=== PATIENT | female | born 1940 | race Caucasian/White ===

== ENCOUNTER 2019-04-25 07:54 | Outpatient (CLI) | payer MEDICARE, MEDICAID, SELFPAY ==
--- NOTE | 2019-04-25 08:06 | MM_ITS ---
WS: [id number] DIAGNOSTIC BILATERAL DIGITAL MAMMOGRAM WITH CAD Bilateral breast ultrasound, limited HISTORY: SUBAREOLAR MASS RIGHT BREAST, LEFT breast retraction. Prior surgery LEFT breast. COMPARISON: 06/23/2015 and 06/11/2015 and 03/26/2014 TECHNIQUE: Bilateral craniocaudad, mediolateral oblique, and mediolateral views are submitted. Spot c ompression views RIGHT and LEFT cc. Computer aided detection utilized. Breast composition: There are scattered areas of fibroglandular density. Triangular marker is placed over the RIGHT breast near 12:00. Underlying breast parenchyma is similar to prior studies. There are benign and vascular calcifications. LEFT breast parenchymal pattern and calcifications are stable. N o skin abnormality or skin thickening. Bilateral breast ultrasound. RIGHT breast: Ultrasound is directed to the palpable area near 12:00. There is no soft tissue mass or shadowing. No skin thickening or increased vascularity. LEFT breast: Ultrasound is directed to the LEFT breast in the area of the skin divot and retraction. There is no underlying mass or skin thickening or focal abnormality. MM/[place] [address] IMPRESSION: BI-RADS: 2-Benign FOLLOW UP: 1 Year Follow-up LACK OF RADIOGRAPHIC EVIDENCE OF MALIGNANCY SHOULD NOT DELAY BIOPSY IF A CLINIC ALLY SUSPICIOUS MASS IS PRESENT.
== END 2019-04-25 07:55 | disposition home or self-care (01) ==
LOC: RADSHAW 08:00
PROVIDERS: Family Provider Nurse Practitioner Family; Visit Provider Nurse Practitioner Family
DX: N63.41 Unspecified lump in right breast, subareolar (principal)
CPT/HCPCS: 76642; 77066

== ENCOUNTER 2021-06-08 09:16 | Emergency (ER) | payer MEDICARE, MEDICAID, SELFPAY ==
[2021-06-08] VITALS (7 sets, daily range): BP systolic 114–172; BP diastolic 71–92; PULSE 60–95; RESP 14–19; TEMP 36.6; O2SAT 93–99; BMI 29.7
--- NOTE | 2021-06-08 09:22 | ED_ITS ---
HPI - SOB/Dyspnea General: Chief Complaint: Weakness Stated Complaint: weakness and diffculty breathing hx of heart attac Time Seen by Provider: 06/08/21 09:21 Source: patient Mode of arrival: ambulatory History of Present Illness: HPI Narrative: 81-year-old female presents to the emergency room with complaint of weakness.She is very nonspecific and answering questions. Her chief complaint of the nurse was weakness when I talked her she is complaining of more of dizziness and chest discomfort. She is quite concerned evidently she had an EKG done as an outpatient and someone told her she had a heart attack. She was seen in October 2020 at that time she had some mild aortic stenosis which was not thought to be clinically significant by Dr. Cifuentes she is also complaining some nonspecific chest pain that was thought to be noncardiac according to the consultation note. She does has occasional vertiginous-like symptoms usually only after she stands up she has not noticed anything else that will seem to trigger them. She gets some epigastric lower chest discomfort without radiation but this is been going on for nearly a year it is mentioned in the October 2020 consultation note as well. She describes it similarly now she did then. Denies any other recent illness. Pertinent past history: other (Aortic stenosis) Context: other (After standing) Timing: intermittent Severity: mild Relieving factors: rest Associated symptoms: Reports chest pain and dizziness; Deny abdominal pain, chest congestion, cough, diaphoresis, extremity pain, fever(s), hemoptysis, lightheadedness, myalgias, nausea, orthopnea, palpitations, paresthesias, polydipsia, polyuria, rash, sense of impending doom, syncope or vomiting Treatment prior to arrival: none Review of Systems Const: Denies: fever(s) or diaphoresis ENMT: Denies: throat pain, ear or mastoid pain, nasal discharge or nasal congestion Card: Reports: chest pain; Denies: palpitations, lightheadedness, syncope or orthopnea Resp: Denies: hemoptysis or chest congestion GI: Denies: abdominal pain, nausea or vomiting : Denies: flank pain, difficulty voiding, dysuria, urinary frequency or urinary urgency Musc: Denies: extremity pain Skin/Breast: Denies: rash or pruritus Neuro: Reports: weakness in extremities, dizziness and vertigo Endo: Denies: polyuria or polydipsia PFSH ED PFSH: Medical History Anxiety Aortic stenosis Benign essential hypertension Cardiac murmur Colon polyps Disorder of lipoid metabolism Fibromyalgia Former smoker Gastritis and duodenitis Hyperlipidemia Iron deficiency anemia Memory loss Osteoporosis Stroke Thyroid disease Tubular adenoma of colon Surgical History Hx of cataract extraction Hx of tonsillectomy Social History Smoking and tobacco status: former smoker Alcohol intake: never Physical Exam Const: GENERAL APPEARANCE: cooperative and comfortable ORIENTATION/CONSCIOUSNESS: Yes awake, Yes oriented to person, Yes oriented to place and Yes oriented to time HENMT: COMMON NORMALS: normocephalic, atraumatic and hearing grossly normal bilaterally HEAD & SCALP: normocephalic and atraumatic Neck/C-Spine: COMMON NORMALS: no JVD Resp: COMMON NORMALS: normal respiratory effort, No retractions, No use of accessory muscles and clear to auscultation bilaterally AUSCULTATION: clear to auscultation bilaterally Cardio: COMMON NORMALS: no JVD, regular rate, regular rhythm and No murmurs present (Cardio) RATE: regular rate RHYTHM: regular rhythm HEART SOUNDS: Murmur heart sound present systolic Location: right sternal border Intensity: III/ GI: COMMON NORMALS: Soft to palpation and No hepatosplenomegaly present AUSCULTATION: Yes normoactive bowel sounds PALPATION: Yes Soft to palpation, No Tenderness to palpation present (GI), No Guarding due to palpation present (GI) and Yes No hepatosplenomegaly present Extremity: COMMON NORMALS: normal to inspection, capillary refill normal, no clubbing, cyanosis or edema, no calf tenderness and no pedal edema Neuro: SENSORIUM/ORIENTATION: Yes oriented to person, Yes oriented to place and Yes oriented to time Skin: COMMON NORMALS: no rashes or lesions noted GENERAL SKIN EXAM: no rashes or lesions noted Course Vital Signs: Vital signs: Vital Signs Temperature 97.9 F 06/08/21 09:28 Pulse Rate 60 06/08/21 15:48 Respiratory Rate 16 06/08/21 15:48 Blood Pressure 158/82 06/08/21 15:48 Pulse Oximetry 99 06/08/21 15:48 MDM - SOB/Dyspnea Medical Decision Making Liver functions markedly elevated along with a T bili but white count is normal. Extensive work-up done tick panel ordered hepatitis panel was normal. No findings on imaging.Patient related she takes equate but did not know specifically what type of medicine she is actually taking just the night generic name brand acetaminophen level was normal. She is unsteady on her feet at times in a particular vertiginous we did ambulate her and she was able to do okay well enough to go home. Called and saw discussed with her primary caregiver they actually had record of about 4 days earlier having significant elevation of her LFTs and have made arrangements for her to see GI. At this point we will go ahead and discharge her home have her keep that appointment however repeat labs with her primary caregiver in 2 days at the office. Lab Data : 06/08/21 09:35 06/08/21 09:35 Labs/Radiology: Radiology Impressions Chest X-Ray 06/08/21 09:22 IMPRESSION: 1. 15 mm indeterminate nodular density along the left heart border. The chest is otherwise unremarkable. Gallbladder Ultrasound 06/08/21 10:19 IMPRESSION: 1. Very minimally hydropic gallbladder. No stones or evidence for acute cholecystitis. 2. No biliary dilatation. Abdomen/Pelvis CT 06/08/21 10:20 IMPRESSION: 1. Mild periportal edema may be due to recent hydration status. Also can be seen with hepatitis. 2. Cholelithiasis without acute cholecystitis. 3. Moderate to severe atherosclerotic changes within the aorta and proximal mesenteric arteries. 4. Normal appendix. 5. No free fluid. 6. Grade 1 spondylolisthesis of L5 with spondylolysis. Head CT 06/08/21 10:20 IMPRESSION: 1. No acute intracranial hemorrhage or edema. 2. Mild cerebral and cerebellar atrophy with advanced small vessel ischemic disease. 3. Advanced atherosclerotic calcification within the vertebral and intracranial carotid arteries. Laboratory Results WBC 5.7 10^3/uL (4.0-10.0) 06/08/21 09:35 RBC 4.51 10^6/uL (4.1-5.3) 06/08/21 09:35 Hgb 14.0 g/dL (11.5-15.3) 06/08/21 09:35 Hct 40.8 % (37.0-47.0) 06/08/21 09:35 MCV 90.5 fl (81-99) 06/08/21 09:35 MCH 31.0 pg (28.0-34.0) 06/08/21 09:35 MCHC 34.3 g/dL (30.0-36.0) 06/08/21 09:35 RDW 16.0 % (12.1-15.1) H 06/08/21 09:35 Plt Count 195 10^3/cmm (130-400) 06/08/21 09:35 MPV 10.7 fL (7.4-10.4) H 06/08/21 09:35 Neut % (Auto) 54.5 % 06/08/21 09:35 Lymph % (Auto) 33.0 % 06/08/21 09:35 [place] % (Auto) 7.7 % 06/08/21 09:35 Eos % (Auto) 3.5 % 06/08/21 09:35 Baso % (Auto) 1.1 % 06/08/21 09:35 Neut # (Auto) 3.10 10^3/uL (1.8-7.7) 06/08/21 09:35 Lymph # (Auto) 1.9 10^3/uL (0.8-4.8) 06/08/21 09:35 [place]ing # (Auto) 0.4 10^3/uL (0.2-0.9) 06/08/21 09:35 Eos # (Auto) 0.2 10^3/uL (0.0-0.8) 06/08/21 09:35 Baso # (Auto) 0.1 10^3/uL (0.0-0.1) 06/08/21 09:35 Nucleated RBC % (auto) 0 % 06/08/21 09:35 Nucleated RBCs # 0.0 /100WBC 06/08/21 09:35 PT 16.70 SECONDS (12.1-14.9) H 06/08/21 12:50 INR 1.32 (0.8-1.2) H 06/08/21 12:50 APTT 27.0 SECONDS (23.9-36.7) 06/08/21 12:50 Sodium 134 mmol/L (136-145) L 06/08/21 09:35 Potassium 3.0 mmol/L (3.5-5.1) L 06/08/21 09:35 Chloride 97 mmol/L (98-107) L 06/08/21 09:35 Carbon Dioxide 27 mmol/L (22-29) 06/08/21 09:35 Anion Gap 13.0 (5-19) 06/08/21 09:35 BUN 10 mg/dL (8-23) 06/08/21 09:35 Creatinine 0.7 mg/dL (0.5-0.9) 06/08/21 09:35 GFR Calculation Not Reportable 06/08/21 09:35 Glucose 86 mg/dL (65-115) 06/08/21 09:35 Calculated Osmolality 276 mOsm/kg (285-295) L 06/08/21 09:35 Calcium 9.4 mg/dL (8.5-10.5) 06/08/21 09:35 Total Bilirubin 4.6 mg/dL (0.15-1.2) H 06/08/21 09:35 AST 1221 U/L (0-32) H 06/08/21 09:35 ALT 627 U/L (0-33) H 06/08/21 09:35 Alkaline Phosphatase 216 IU/L (35-105) H 06/08/21 09:35 Ammonia 22 umol/L (11-51) 06/08/21 12:50 Troponin T Baseline 16 ng/L (0-10) H 06/08/21 09:35 Troponin T 120 Minute 15.53 ng/L (0-10) H 06/08/21 11:41 Delta Troponin T -0.47 ABS# (0-10) L 06/08/21 11:41 NT-Pro-B Natriuret Pep 50 pg/mL (0-450) 06/08/21 09:35 Total Protein 8.5 g/dL (6.6-8.7) 06/08/21 09:35 Albumin 3.5 g/dL (3.5-5.2) 06/08/21 09:35 Globulin 5.0 g/dL (1.3-4.6) H 06/08/21 09:35 TSH 0.09 uIU/mL (0.27-4.20) L 06/08/21 11:41 Acetaminophen < 5.0 ug/mL (10-30) L 06/08/21 11:41 Hepatitis A IgM Ab Non-reactive (Nonreactive) 06/08/21 12:50 Hep Bs Antigen Non-reactive (Nonreactive) 06/08/21 12:50 Hep B Core IgM Ab Non-reactive (Nonreactive) 06/08/21 12:50 Hepatitis C Antibody Non-reactive (Nonreactive) 06/08/21 12:50 Discharge Plan Discharge Patient Disposition: Home Clinical Impression: Elevated LFTs, Hyperbilirubinemia, Weakness Condition: Stable Prescriptions: No Action levothyroxine 112 mcg tablet 112 mcg PO DAILY 0RF citalopram 20 mg tablet 20 mg PO DAILY 0RF PreserVision AREDS [id number],[id number] uktk-eg-julo capsule 1 cap PO BID 0RF hydrochlorothiazide 25 mg tablet 25 mg PO DAILY 0RF omeprazole 20 mg tablet,delayed release (DR/EC) 20 mg PO DAILY 0RF Discharge Orders: Discharge ED (Routine); Ordered 06/08/21 Ordered By: Saurabh Vela Referrals: Krea Albarran NP [Hospitalist] - Discharge Diet: Usual diet Discharge Activity: Limit activity as instructed Patient Instructions: Opioid Safety Activity Restrictions/Additional Instructions: Follow-up with your primary health careers instructor within the next 2 to 3 days for repeat liver functions Coding Level of Care Code ED Director Of Materials for Chg Fwd Exam Comprehensive
--- NOTE | 2021-06-08 09:22 | XR_ITS ---
WS: [id number] Exam: XR chest 1V portable [id number] Date/Time of Exam: 06/08/2021 9:29 AM Reason For Exam: dyspnea/cough No priors. 15 mm nodular density seen in the left heart border. The lungs are otherwise clear and fully expanded . Normal cardiomediastinal silhouette. No pleural effusions. Bony structures are intact. Levoscoliosi s of the thoracic spine. Recommendations: A detailed PA and lateral chest radiograph would be recommended for further workup. If this abnormality is still present, contrast CT scanning of the chest should be performed for furth er evaluation. XR/XR chest 1V portable [id number] IMPRESSION: 1. 15 mm indeterminate nodular density along the left heart border. The chest i s otherwise unremarkable.
--- NOTE | 2021-06-08 09:23 | ECG_ITS ---
[facility] Test Date: 2021-06-08 Pat Name: Chacha Edmond Department: Room: Gender: Female Acid Leveler: : 1940 Requested By: Saurabh Perkins Order Number: [id number] Helga MD: Antonia Ramirez M.D. Measurements Intervals [place] Rate: 71 P: 64 HI: 162 QRS: -4 QRSD: 101 T: 32 QT: 399 QTc: 435 Interpretive Statements SINUS RHYTHM Compared to ECG 10/01/2014 13:34:18 Sinus bradycardia no longer present Electronically Signed On 06-08-2021 17:43:24 BLUEPRINT TRACER by Antonia Ramirez M.D. [id number] f
[2021-06-08 09:42] LABS: Basophils # 0.1 10^3/uL (0.0-0.1); Basophils % 1.1 %; Eosinophils # 0.2 10^3/uL (0.0-0.8); Eosinophils % 3.5 %; Hematocrit 40.8 % (37.0-47.0); Lymphocytes # 1.9 10^3/uL (0.8-4.8); Mean Corpuscular HGB Conc 34.3 g/dL (30.0-36.0); Mean Corpuscular Volume 90.5 fl (81-99); Mean Platelet Volume 10.7 fL (7.4-10.4); Monocytes # 0.4 10^3/uL (0.2-0.9); Monocytes % 7.7 %; Neutrophils % 54.5 %; Nucleated Red Blood Cells % 0 %; Platelet Count 195 10^3/cmm (130-400); Red Blood Count 4.51 10^6/uL (4.1-5.3); White Blood Count 5.7 10^3/uL (4.0-10.0)
[2021-06-08 10:06] LABS: Troponin(5th) Baseline 16 ng/L (0-10)
[2021-06-08 10:14] LABS: Alanine Aminotransferase 627 U/L (0-33); Albumin Level 3.5 g/dL (3.5-5.2); Alkaline Phosphatase 216 IU/L (35-105); Blood Urea Nitrogen 10 mg/dL (8-23); Calcium 9.4 mg/dL (8.5-10.5); Carbon Dioxide 27 mmol/L (22-29); Chloride 97 mmol/L (98-107); Glucose 86 mg/dL (65-115); NT Pro B Type Natriuretic Pept 50 pg/mL (0-450); Osmolality Calculated 276 mOsm/kg (285-295); Sodium 134 mmol/L (136-145); Total Bilirubin 4.6 mg/dL (0.15-1.2); Total Protein 8.5 g/dL (6.6-8.7)
--- NOTE | 2021-06-08 10:19 | US_ITS ---
WS: [id number] RIGHT UPPER QUADRANT ULTRASOUND HISTORY: Elevated T bili. COMPARISON: None available. Liver: 15.0 cm in length. Normal size liver. No bile duct dilatation or mass. Portal Vein: Normal hepatopetal flow with monophasic waveform. Gallbladder: Mildly hydropic gallbladder. Gallbladder transverse diameter is 4.3 cm. No stones are id entified. No wall thickening. CBD: 0.4 cm Pancreas: Normal size and echogenicity. Right kidney: 9.6 cm in length. Normal size and echogenicity. No hydronephrosis or mass. Aorta and IVC: Mild atherosclerosis aorta. IVC is not well visualized. No ascites. US/US gall bladder [id number] IMPRESSION: 1. Very minimally hydropic gallbladder. No stones or evidence for acute cholec ystitis. 2. No biliary dilatation.
--- NOTE | 2021-06-08 10:20 | CT_ITS ---
WS: [id number] CT ABDOMEN AND PELVIS WITH CONTRAST HISTORY: Nausea with generalized abdominal pain. TECHNIQUE: Imaging performed of the abdomen and pelvis with IV contrast. Single phase imaging of the abdomen. Coronal and sagittal reformats are submitted. All CT scans at [facility] use at [facility] one of these dose optimization techniques: automated exposure control; mA and/or kV adjustment per patient size (includes targeted exams where dose is matched to clinical indication); or iterative re construction. IV CONTRAST: Omnipaque 300; 95 mL IV. Oral contrast: No DLP: 1233.94 mGy.cm COMPARISON: None available. Lower thorax: Lung bases are clear. Is slightly enlarged with moderate calcification in the coronary arteries. No hiatal hernia. Liver/biliary system: Normal size liver. There are a few scattered hypodensities which are too small to characterize. Mild. Portal edema. Normal portal vein. Gallbladder: Normally distended gallbladder with stones. No pericholecystic fluid or gallbladder wall thickening. Pancreas: Normal size pancreas and pancreatic duct. No adjacent inflammation. Spleen: Normal size spleen. No mass or infarct. Adrenal glands: Normal. Right kidney: Normal. Left kidney: Normal. Aorta: Moderate atherosclerosis with no aneurysm. Moderate amount of plaque at the origin of the gus ac axis and SMA. Lymphadenopathy: None. Free fluid: None. GI tract: Normal appendix. No GI tract obstruction. Stomach is nondistended. No small bowel distentio n. No inflammatory changes. Abdominal wall: Fat containing umbilical hernia. Pelvis: Nondistended urinary bladder. Atrophic uterus. No adenopathy. Bones: Recently lumbar doses L5 anterolisthesis by 13 mm. Bilateral pars defects at L5. CT/CT abdomen pelvis w con* [id number] IMPRESSION: 1. Mild periportal edema may be due to recent hydration status. Also can be se en with hepatitis. 2. Cholelithiasis without acute cholecystitis. 3. Moderate to severe atherosclerotic changes within the aorta and proximal me senteric arteries. 4. Normal appendix. 5. No free fluid. 6. Grade 1 spondylolisthesis of L5 with spondylolysis.
--- NOTE | 2021-06-08 10:20 | CT_ITS ---
WS: [id number] CT HEAD NONCONTRAST HISTORY: vertigo/dizziness TECHNIQUE: Contiguous axial imaging performed through the brain in 2.5 mm imaging. Bone and soft tiss ue windows. Sagittal and coronal reformats reviewed. All CT scans at [facility] use at least one of these dose optimization techniques: automated exposure control; mA and/or kV adjustment per pa tient size (includes targeted exams where dose is matched to clinical indication); or iterative recon struction. DLP: 832.6 mGy.cm COMPARISON: 10/01/2014 No acute intracranial hemorrhage, midline shift or mass effect. Mild cerebral atrophy. More extensive decreased signal within the white matter, greatest on the RIGHT . Most typical for small vessel advanced microvascular disease in this age group. Small vessel ischem ic changes have progressed since 2014. Remote lacunar infarcts in the anterior limbs of the internal capsules . No inferior displacement of cerebellar tonsils. Ventricles: Normal size with no hydrocephalus. Mild cerebellar atrophy. Heavy calcification noted within the distal vertebral arteries and through the carotid arteries in th e cavernous sinuses and supraclinoid. Very heavy calcification noted. Paranasal sinuses: As visualized are clear. Mastoid air cells: Well pneumatized. Calvarium and scalp: Skull is intact with no soft tissue edema or swelling. CT/CT head wo con* [id number] IMPRESSION: 1. No acute intracranial hemorrhage or edema. 2. Mild cerebral and cerebellar atrophy with advanced small vessel ischemic di sease. 3. Advanced atherosclerotic calcification within the vertebral and intracrania l carotid arteries.
[2021-06-08 10:23] LABS: Aspartate Amino Transferase 1221 U/L (0-32)
[2021-06-08] MEDS: iohexol 300 mg/mL 100 mL Btl IV (11:20)
--- NOTE | 2021-06-08 11:23 | ECG_ITS ---
[facility] Test Date: 2021-06-08 Pat Name: Chacha Edmond Department: Room: Gender: Female Business Machines Teacher: : 1940 Requested By: Saurabh Perkins Order Number: [id number] Helga MD: Anotnia Ramirez M.D. Measurements Intervals [place] Rate: 63 P: 62 NV: 176 QRS: 15 QRSD: 103 T: 42 QT: 425 QTc: 438 Interpretive Statements SINUS RHYTHM Compared to ECG 06/08/2021 11:40:19 No significant changes Electronically Signed On 06-08-2021 17:45:11 AGRICULTURAL ENGINEERING TEACHER by Antonia Ramirez M.D. [id number]
[2021-06-08 12:30] LABS: Troponin 5 2HR 15.53 ng/L (0-10)
[2021-06-08 12:34] LABS: Troponin 5 2HR Delta -0.47 ABS# (0-10)
[2021-06-08 13:11] LABS: INR 1.32 (0.8-1.2)
[2021-06-08 13:26] LABS: Ammonia 22 umol/L (11-51)
[2021-06-08 13:50] LABS: Hepatitis A Antibody IgM Non-Reactive (Nonreactive); Hepatitis B Core IgM Non-Reactive (Nonreactive); Hepatitis B Surface Antigen Non-Reactive (Nonreactive); Hepatitis C Virus Antibody Non-Reactive (Nonreactive)
[2021-06-08] MEDS: lactated ringers 1,000 ML 999 ML IV (14:49)
[2021-06-08] MEDS: potassium chloride oral liq 20 mEq/15 mL UDC 40 MEQ PO (14:49)
--- NOTE | 2021-06-08 15:05 | PC.NURSE ---
Patient ambulated by this nurse at approximately 1430. Patient ambulated well but slightly lost balance when turning around
--- NOTE | 2021-06-08 15:23 | ECG_ITS ---
[facility] Test Date: 2021-06-08 Pat Name: Chacha Edmond Department: Room: Gender: Female Real Estate Specialist: : 1940 Requested By: Suarabh Perkins Order Number: [id number] Helga MD: Antonia Ramirez M.D. Measurements Intervals [place] Rate: 63 P: 64 KS: 170 QRS: 23 QRSD: 99 T: 47 QT: 430 QTc: 442 Interpretive Statements SINUS RHYTHM WITH OCCASIONAL SUPRAVENTRICULAR PREMATURE COMPLEXES Compared to ECG 06/08/2021 09:32:58 No significant changes Electronically Signed On 06-08-2021 17:45:08 MUSEUM OR ZOO DIRECTOR by Antonia Ramirez M.D. [id number]
[2021-06-08 15:40] LABS: Thyroid Stimulating Hormone 0.09 uIU/mL (0.27-4.20)
[2021-06-08 15:44] LABS: Acetaminophen < 5.0 ug/mL (10-30)
[2021-06-09 15:54] LABS: Lyme AB Screen <0.90 index
[2021-06-12 16:54] LABS: E. Chaffeensis AB IGG <1:64; E. Chaffeensis AB IGM <1:20
[2021-06-15 16:23] LABS: RMSF IGG DETECTED; RMSF IGM NOT DETECTED
== END 2021-06-08 15:49 | disposition home or self-care (01) ==
PROVIDERS: Emergency Provider Family Medicine
DX: R53.1 Weakness (principal); E80.6 Other disorders of bilirubin metabolism; R79.89 Other specified abnormal findings of blood chemistry; I10 Essential (primary) hypertension; E78.5 Hyperlipidemia, unspecified; Z86.73 Personal history of transient ischemic attack (TIA), and cerebral infarction without residual deficits; Z87.891 Personal history of nicotine dependence
CPT/HCPCS: 36415; 70450; 71045; 74177; 76705; 80053; 80074; 80307; 82140; 83880; 84443; 84484; 85025; 85610; 85730; 86618; 86666; 86757; 93005; 96360; 99284; Q9967

== ENCOUNTER → 2021-06-23 10:28 | Outpatient (BNVA) | payer MEDICARE, MEDICAID, SELFPAY | PROVIDERS: Visit Provider Internal Medicine Cardiovascular Disease | DX: I35.0 Nonrheumatic aortic (valve) stenosis (principal); E78.2 Mixed hyperlipidemia; I10 Essential (primary) hypertension | CPT/HCPCS: 80048; 80076; 83880; 99214; 99215 ==

== ENCOUNTER 2021-07-13 12:17 | Emergency (ER) | payer MEDICARE, MEDICAID, SELFPAY ==
[2021-07-13 12:25] VITALS: BP 127/74; PULSE 82; RESP 16; TEMP 36.3; O2SAT 94
[2021-07-13 13:47] VITALS: BP 163/135; PULSE 84; RESP 18; O2SAT 97
[2021-07-13 14:20] LABS: Basophils # 0.1 10^3/uL (0.0-0.1); Basophils % 1.2 %; Eosinophils # 0.1 10^3/uL (0.0-0.8); Hematocrit 36.2 % (37.0-47.0); Hemoglobin 12.4 g/dL (11.5-15.3); Lymphocytes # 1.9 10^3/uL (0.8-4.8); Lymphocytes % 28.7 %; Mean Corpuscular HGB Conc 34.3 g/dL (30.0-36.0); Mean Corpuscular Hemoglobin 33.5 pg (28.0-34.0); Mean Corpuscular Volume 97.8 fl (81-99); Monocytes # 0.6 10^3/uL (0.2-0.9); Monocytes % 8.5 %; Neutrophils # 3.89 10^3/uL (1.8-7.7); Neutrophils % 59.1 %; Nucleated Red Blood Cells % 0 %; Platelet Count 203 10^3/cmm (130-400); Red Cell Distribution Width 17.3 % (12.1-15.1); White Blood Count 6.6 10^3/uL (4.0-10.0)
[2021-07-13 14:41] VITALS: BP 160/128; PULSE 79; RESP 21; O2SAT 99
--- NOTE | 2021-07-13 14:41 | W.ED.WEAKNES ---
HPI - Weakness General: Chief complaint: Weakness Stated complaint: abnormal labs Time Seen by Provider: 07/13/21 12:40 Source: patient Mode of arrival: ambulatory Limitations: no limitations History of Present Illness: 81-year-old female presents to the emergency room at the direction of her primary care midlevel provider because of elevated liver enzymes this is been an ongoing problem we seen her back in May and evaluated her during the course of evaluation we talked to the midlevel he sees in the office they had already arranged for her to see gastroenterology. Other testing done at that time including a tick panel and a hepatitis panel were negative. 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 She was discharged not ER visit because there is already a scheduled gastroenterology appointment. She is reporting that they monitored her liver functions and have been elevating and they sent her back to the emergency room because of elevated liver functions. Evidently she has not seen gastroenterology yet she is scheduled to see them tomorrow the midlevel referred her here so that she can be seen by gastroenterology sooner. Complaint: generalized weakness Onset (ago): month(s) Duration: constant and progressively worsening Location: generalized Severity: moderate Relieving factors: none Exacerbating factors: none Associated symptoms: Reports decreased appetite and nausea; Denies chest pain, chills, confusion, melena, diaphoresis, dysuria, easy bruising, fever(s), headache(s), myalgias, rash, short of breath, syncope or vomiting Review of Systems Const: Denies: fever(s), chills or diaphoresis ENMT: Denies: throat pain, ear or mastoid pain, nasal discharge or nasal congestion Card: Denies: chest pain or syncope Resp: Denies: dyspnea, productive cough or non-productive cough GI: Reports: nausea; Denies: abdominal pain, vomiting, hematemesis, coffee ground emesis, diarrhea, constipation, bloating, GI cramping or melena : Denies: flank pain, difficulty voiding, dysuria, urinary frequency or urinary urgency Skin/Breast: Denies: rash or pruritus Neuro: Denies: headache(s) or confusion Trev/Lymph: Denies: easy bruising or easy bleeding PFS ED PFSH: Medical History Anxiety Aortic stenosis Benign essential hypertension Cardiac murmur Colon polyps Disorder of lipoid metabolism Fibromyalgia Former smoker Gastritis and duodenitis Hyperlipidemia Iron deficiency anemia Memory loss Osteoporosis Stroke Thyroid disease Tubular adenoma of colon Surgical History Hx of cataract extraction Hx of tonsillectomy Social History Smoking and tobacco status: former smoker Alcohol intake: never Physical Exam Const: GENERAL APPEARANCE: cooperative and comfortable ORIENTATION/CONSCIOUSNESS: Yes awake, Yes oriented to person, Yes oriented to place and Yes oriented to time HENMT: COMMON NORMALS: normocephalic, atraumatic and hearing grossly normal bilaterally HEAD & SCALP: normocephalic and atraumatic Neck/C-Spine: COMMON NORMALS: no JVD Resp: COMMON NORMALS: normal respiratory effort, No retractions, No use of accessory muscles and clear to auscultation bilaterally AUSCULTATION: clear to auscultation bilaterally Cardio: COMMON NORMALS: no JVD, regular rate, regular rhythm and No murmurs present (Cardio) RATE: regular rate RHYTHM: regular rhythm GI: COMMON NORMALS: Soft to palpation and No hepatosplenomegaly present AUSCULTATION: Yes normoactive bowel sounds PALPATION: Yes Soft to palpation, No Tenderness to palpation present (GI), No Guarding due to palpation present (GI) and Yes No hepatosplenomegaly present Extremity: COMMON NORMALS: normal to inspection, capillary refill normal, no clubbing, cyanosis or edema, no calf tenderness and no pedal edema Neuro: SENSORIUM/ORIENTATION: Yes oriented to person, Yes oriented to place and Yes oriented to time Skin: COMMON NORMALS: no rashes or lesions noted GENERAL SKIN EXAM: no rashes or lesions noted Course Vital Signs: Vital signs: Vital Signs Temperature 97.4 F L 07/13/21 12:25 Pulse Rate 69 07/13/21 17:17 Respiratory Rate 20 H 07/13/21 17:17 Blood Pressure 160/116 07/13/21 17:17 Pulse Oximetry 97 07/13/21 17:17 MDM - Weakness Medical Decision Making Reviewed chart. Patient continues in the same trend with elevated liver enzymes and hyperbilirubinemia. Her previous visit her acute hepatitis panel was negative her tick panel showed previous Rickettsia infection and also has hypothyroidism. This was addressed by her primary care midlevel whose they tell me increased her Synthroid. She has an appointment tomorrow with gastroenterology at [facility]. This is been a chronic process been advancing over the last 6 weeks she is not have any acute issues at this time. It is concerning that her INR is worsening and that these liver functions are progressively worsening. At her previous visit we checked a Tylenol level and advised patient not to use any Tylenol going forward she tells me she has not been. I do not believe there is anything that would be accomplished by transferring and patient should probably still be seen in about the same timeframe issues that need to be addressed can be begun at an outpatient setting tomorrow when she sees gastroenterology. I discussed this with the family at this point the probably the most expeditious thing to do is keep the appointment with gastroenterology tomorrow. There is a potential that the sole scraper may admit her once he sees her at the office. However at this time I do not believe she requires emergent transfer and can keep her appointment tomorrow morning. If anything changes between now and then she is free to return. Copies of her labs were given to her today to take with her to tomorrow's gastroenterology consultation. Medical Records I reviewed the patient's medical records. Lab Data I reviewed the patient's lab results. : 07/13/21 14:06 07/13/21 15:45 Laboratory Results WBC 6.6 10^3/uL (4.0-10.0) 07/13/21 14:06 RBC 3.70 10^6/uL (4.1-5.3) L 07/13/21 14:06 Hgb 12.4 g/dL (11.5-15.3) 07/13/21 14:06 Hct 36.2 % (37.0-47.0) L 07/13/21 14:06 MCV 97.8 fl (81-99) 07/13/21 14:06 MCH 33.5 pg (28.0-34.0) 07/13/21 14:06 MCHC 34.3 g/dL (30.0-36.0) 07/13/21 14:06 RDW 17.3 % (12.1-15.1) H 07/13/21 14:06 Plt Count 203 10^3/cmm (130-400) 07/13/21 14:06 MPV 12.0 fL (7.4-10.4) H 07/13/21 14:06 Neut % (Auto) 59.1 % 07/13/21 14:06 Lymph % (Auto) 28.7 % 07/13/21 14:06 [place] % (Auto) 8.5 % 07/13/21 14:06 Eos % (Auto) 2.0 % 07/13/21 14:06 Baso % (Auto) 1.2 % 07/13/21 14:06 Neut # (Auto) 3.89 10^3/uL (1.8-7.7) 07/13/21 14:06 Lymph # (Auto) 1.9 10^3/uL (0.8-4.8) 07/13/21 14:06 [place] # (Auto) 0.6 10^3/uL (0.2-0.9) 07/13/21 14:06 Eos # (Auto) 0.1 10^3/uL (0.0-0.8) 07/13/21 14:06 Baso # (Auto) 0.1 10^3/uL (0.0-0.1) 07/13/21 14:06 Nucleated RBC % (auto) 0 % 07/13/21 14:06 Nucleated RBCs # 0.0 /100WBC 07/13/21 14:06 PT 18.90 SECONDS (12.1-14.9) H 07/13/21 14:48 INR 1.55 (0.8-1.2) H 07/13/21 14:48 APTT 32.5 SECONDS (23.9-36.7) 07/13/21 14:48 Sodium 131 mmol/L (136-145) L 07/13/21 15:45 Potassium 3.6 mmol/L (3.5-5.1) 07/13/21 15:45 Chloride 101 mmol/L (98-107) 07/13/21 15:45 Carbon Dioxide 25 mmol/L (22-29) 07/13/21 15:45 Anion Gap 8.6 (5-19) 07/13/21 15:45 BUN 9 mg/dL (8-23) 07/13/21 15:45 Creatinine 0.4 mg/dL (0.5-0.9) L 07/13/21 15:45 GFR Calculation Not Reportable 07/13/21 15:45 Glucose 96 mg/dL (65-115) 07/13/21 15:45 Calculated Osmolality 271 mOsm/kg (285-295) L 07/13/21 15:45 Calcium 8.4 mg/dL (8.5-10.5) L 07/13/21 15:45 Total Bilirubin 6.9 mg/dL (0.15-1.2) H 07/13/21 15:45 Direct Bilirubin 5.10 mg/dL (0.00-0.30) H 07/13/21 15:45 AST 880 U/L (0-32) H 07/13/21 15:45 ALT 487 U/L (0-33) H 07/13/21 15:45 Alkaline Phosphatase 204 IU/L (35-105) H 07/13/21 15:45 Total Protein 8.3 g/dL (6.6-8.7) 07/13/21 15:45 Albumin 2.4 g/dL (3.5-5.2) L 07/13/21 15:45 Globulin 5.9 g/dL (1.3-4.6) H 07/13/21 15:45 Urine Color Dark yellow (Yellow) 07/13/21 14: Urine Appearance Hazy (CLEAR) A 07/13/21 14:29 Urine pH 5 (5-7) 07/13/21 14:29 Ur Specific [place] 1.020 (1.005-1.030) 07/13/21 14: Urine Protein 1+ (Negative) H 07/13/21 14:29 Urine Glucose (UA) Norm (Normal) 07/13/21 14: Urine Ketones 1+ (Negative) H 07/13/21 14: Urine Blood 2+ (Negative) H 07/13/21 14: Urine Nitrate Positive (Negative) H 07/13/21 14: Urine Bilirubin 3+ (Negative) H 07/13/21 14: Urine Urobilinogen 4+ mg/dL (Negative) H 07/13/21 14:29 Ur Leukocyte Esterase 2+ (Negative) H 07/13/21 14: Urine RBC 25-40 /hpf (0-2) H 07/13/21 14:29 Urine WBC >100 /hpf (0-5) H 07/13/21 14:29 Ur Squamous Epith Cells 0-4 /hpf (0-5) H 07/13/21 14:29 Ur Renal Epithelial Cell 0-4 /hpf 07/13/21 14:29 Calcium Oxalate Crystal 0-4 /hpf H 07/13/21 14:29 Amorphous Sediment Not Reportable 07/13/21 14:29 Urine Bacteria Trace /hpf (NONE) 07/13/21 14:29 Discharge Plan Discharge Patient Disposition: Home Clinical Impression: Elevated liver enzymes, Hyperbilirubinemia Condition: Stable Prescriptions: No Action hydrochlorothiazide 25 mg tablet 25 mg PO DAILY 0RF citalopram 10 mg tablet 10 mg PO DAILY 0RF levothyroxine 100 mcg Tablet 100 mcg PO DAILY 0RF Discharge Orders: Discharge ED (Routine); Ordered 07/13/21 Ordered By: Saurabh Vela Discharge Diet: Clear Liquid Discharge Activity: Increase activity as tolerated Patient Instructions: Opioid Safety Activity Restrictions/Additional Instructions: Appointment with gastroenterology tomorrow. Coding Level of Care Code ED Dining Room Host/Hostess for Abdelrahman Fwd Exam Comprehensive
[2021-07-13 15:17] LABS: INR 1.55 (0.8-1.2)
[2021-07-13 15:20] LABS: Partial Thromboplastin Time 32.5 SECONDS (23.9-36.7)
[2021-07-13 15:55] LABS: Bilirubin Urine 3+ (Negative); Blood Urine 2+ (Negative); Glucose Urine UA Norm (Normal); Ketones Urine 1+ (Negative); Nitrate Urine Positive (Negative); Protein Urine 1+ (Negative); Urine Appearance Hazy (CLEAR); Urine Color Dark Yellow (Yellow); pH Urine 5 (5-7)
[2021-07-13 15:56] LABS: Add Urine Microscopic? YES; Bacteria Urine TRACE /hpf; Calcium Oxalate Crystals Urine 0-4 /hpf; Leukocyte Esterase Urine 2+ (Negative); RBC Urine 25-40 /hpf (0-2); Renal Epithelial Cells Urine 0-4 /hpf; Squamous Epithelial Cell Urine 0-4 /hpf (0-5); Urobilinogen Urine 4+ mg/dL (Negative); WBC Urine >100 /hpf (0-5)
[2021-07-13 15:57] LABS: Add Urine Culture? Yes
[2021-07-13 16:12] LABS: Alanine Aminotransferase 487 U/L (0-33); Albumin Level 2.4 g/dL (3.5-5.2); Alkaline Phosphatase 204 IU/L (35-105); Anion Gap 8.6 (5-19); Blood Urea Nitrogen 9 mg/dL (8-23); Calcium 8.4 mg/dL (8.5-10.5); Carbon Dioxide 25 mmol/L (22-29); Chloride 101 mmol/L (98-107); Globulin 5.9 g/dL (1.3-4.6); Glucose 96 mg/dL (65-115); Osmolality Calculated 271 mOsm/kg (285-295); Potassium 3.6 mmol/L (3.5-5.1); Sodium 131 mmol/L (136-145); Total Bilirubin 6.9 mg/dL (0.15-1.2); Total Protein 8.3 g/dL (6.6-8.7)
[2021-07-13 16:21] VITALS: BP 168/88; PULSE 57; RESP 19; O2SAT 96
[2021-07-13 16:28] LABS: Aspartate Amino Transferase 880 U/L (0-32)
[2021-07-13 17:17] VITALS: BP 160/116; PULSE 69; RESP 20; O2SAT 97
== END 2021-07-13 17:19 | disposition home or self-care (01) ==
PROVIDERS: Emergency Medicine; Emergency Provider Family Medicine
DX: R94.5 Abnormal results of liver function studies (principal); E80.6 Other disorders of bilirubin metabolism; I10 Essential (primary) hypertension; Z86.19 Personal history of other infectious and parasitic diseases; Z87.891 Personal history of nicotine dependence
CPT/HCPCS: 51701; 80053; 81001; 82248; 85025; 85610; 85730; 87086; 99283

== ENCOUNTER 2021-09-03 10:41 | Outpatient (CLI) | payer MEDICARE, MEDICAID, SELFPAY ==
--- NOTE | 2021-09-03 11:15 | USCV_ITS ---
Chacha Edmond Age: 81 Gender: F : 1940 Exam Date: 09/03/2021 11:03 Ordering Phys: Jl Cifuentes MD ([email or web address]) Technologist: NORM [place] [facility] [place]: EVALUATE FOR AORTIC STENOSIS BP: 104 / 60 HR: 74 Rhythm: Sinus Technical Quality: Adequate MEASUREMENTS (Male / Female) Normal Values 2D ECHO LV Diastolic Diameter PLAX 3.6 cm 4.2 - 5.9 / 3.9 - 5.3 cm LV Systolic Diameter PLAX 2.6 cm IVS Diastolic Thickness 1.6 cm 0.6 - 1.0 / 0.6 - 0.9 cm IVS Systolic Thickness 1.6 cm LVPW Diastolic Thickness 1.3 cm 0.6 - 1.0 / 0.6 - 0.9 cm LVPW Systolic Thickness 1.7 cm LVOT Diameter 2.0 cm LV Ejection Fraction 2D Teich 55.7 % LV Ejection Fraction MOD 2C 72.1 % LV Ejection Fraction 2C AL 73.1 % LA Diameter 3.3 cm LA Width 3.2 cm LA Height 4.9 cm RA Width 2.5 cm RA Height 4.6 cm Aorta at Sinotubular Diameter 2.7 cm IVC Diameter 1.2 cm M-MODE Aortic Annulus Diameter 3.1 cm LA Ao Ratio MM 0.9 MV E Point Septal Separation 0.5 cm DOPPLER AV Peak Velocity 321.3 cm/s LVOT Peak Velocity 155.0 cm/s AV Area Cont Eq vti 1.4 cm squared AV Area Cont Eq pk 1.5 cm squared MV Peak Velocity 115.0 cm/s MV Area PHT 1.9 cm squared Mitral E to A Ratio 0.6 MV E' Velocity 39.5 cm/s Mitral E to MV E' Ratio 7.7 Mitral E to LV E' Lateral Ratio 7.1 Mitral E to LV E' Septal Ratio 8.4 TR Peak Velocity 230.0 cm/s TR Peak Gradient 21.2 mmHg TR Mean Velocity 207.0 cm/s TR Mean Gradient 18.0 mmHg TR Velocity Time Integral 73.3 cm TV Peak E Velocity 62.0 cm/s Right Atrial Pressure 3.0 mmHg Pulmonary Artery Systolic Pressu 24.2 mmHg PV Peak Velocity 115.0 cm/s RV Acceleration Time 0.1 s RV Ejection Time 0.3 s RV AcT/ET 0.2 FINDINGS Left Ventricle Normal left ventricular size and systolic function, EF 75 %. Mild left ventricular hypertrophy. No regional wall motion abnormalities. Grade I/IV diastolic dysfunction (abnormal relaxation filling pattern), normal to mildly elevated filling pressures. Right Ventricle The right ventricle is normal in size and function. Right Atrium The right atrium is normal in size. Left Atrium Mildly increased left atrial size. Mitral Valve Thickened mitral valve. Moderate mitral annular calcification. Mild mitral valve regurgitation. Aortic Valve Moderate aortic valve stenosis, mean gradient 21.1 mmHg, KINGA 1.4 cm squared. Peak velocity of 3.2 m/s with a peak gradient of 43 and a mean of 22 mmHg Tricuspid Valve [id number] tricuspid valve regurgitation. Pulmonic Valve No gross abnormalities noted Pericardium Normal pericardium without effusion. Aorta Normal ascending aorta dimension. IVC The inferior vena cava pulmonary and hepatic veins appear normal. CONCLUSIONS Normal left ventricular size and systolic function, EF 75 %. Mild left ventricular hypertrophy. No regional wall motion abnormalities. Grade I/IV diastolic dysfunction (abnormal relaxation filling pattern), normal to mildly elevated filling pressures. Mildly increased left atrial size. Moderate aortic valve stenosis, mean gradient 21.1 mmHg, KINGA 1.4 cm squared. Peak velocity of 3.2 m/s with a peak gradient of 43 and a mean of 22 mmHg. Thickened mitral valve. Moderate mitral annular calcification. Mild mitral valve regurgitation. There is no pericardial effusion. There are no intracardiac masses. No previous study is available for comparison. Dr Jl Cifuentes MD [facility] (Electronically Signed) Final Date: 03 Sep 2021 13:51 S
== END 2021-09-03 10:42 | disposition home or self-care (01) ==
PROVIDERS: Visit Provider Internal Medicine Cardiovascular Disease
DX: I35.0 Nonrheumatic aortic (valve) stenosis (principal); R06.00 Dyspnea, unspecified
CPT/HCPCS: 93306

== ENCOUNTER → 2021-09-16 09:22 | Outpatient (BNVA) | payer MEDICARE, MEDICAID, SELFPAY | PROVIDERS: PCP Nurse Practitioner Family; Visit Provider Internal Medicine Rheumatology | DX: M15.9 Polyosteoarthritis, unspecified (principal); R76.8 Other specified abnormal immunological findings in serum; K75.4 Autoimmune hepatitis; Z11.59 Encounter for screening for other viral diseases; Z11.1 Encounter for screening for respiratory tuberculosis; Z79.899 Other long term (current) drug therapy; Z79.52 Long term (current) use of systemic steroids; Z71.85 Encounter for immunization safety counseling | CPT/HCPCS: 71046; 73130; 73630; 80076; 81001; 82306; 82570; 84156; 85025; 85651; 86038; 86140; 86200; 86431; 86480; 86704; 86803; 87340; 99204 ==

== ENCOUNTER → 2022-01-13 11:27 | Outpatient (BNVA) | payer MEDICARE, MEDICAID, SELFPAY | PROVIDERS: PCP Nurse Practitioner Family; Visit Provider Internal Medicine Rheumatology | DX: M15.4 Erosive (osteo)arthritis (principal); R76.8 Other specified abnormal immunological findings in serum; K75.4 Autoimmune hepatitis; Z79.899 Other long term (current) drug therapy; Z79.52 Long term (current) use of systemic steroids | CPT/HCPCS: 85651; 86140; 86160; 86162; 86235; 86255; 86376; 99214 ==

== ENCOUNTER → 2022-02-02 09:29 | Outpatient (BNVA) | payer MEDICARE, MEDICAID, SELFPAY | PROVIDERS: PCP Nurse Practitioner Family; Visit Provider Internal Medicine Cardiovascular Disease | DX: I35.0 Nonrheumatic aortic (valve) stenosis (principal); E78.2 Mixed hyperlipidemia; I10 Essential (primary) hypertension; R07.89 Other chest pain; K75.4 Autoimmune hepatitis | CPT/HCPCS: 99214 ==

== ENCOUNTER → 2022-04-20 10:24 | Outpatient (BNVA) | payer MEDICARE, MEDICAID, SELFPAY | PROVIDERS: PCP Nurse Practitioner Family; Visit Provider Internal Medicine Rheumatology | DX: K75.4 Autoimmune hepatitis (principal); R76.8 Other specified abnormal immunological findings in serum; M15.4 Erosive (osteo)arthritis; R29.898 Other symptoms and signs involving the musculoskeletal system; Z79.52 Long term (current) use of systemic steroids | CPT/HCPCS: 36415; 82085; 82550; 85651; 86140; 99214 ==

== ENCOUNTER → 2022-07-26 12:12 | Outpatient (BNVA) | payer MEDICARE, MEDICAID, SELFPAY | PROVIDERS: PCP Nurse Practitioner Family; Visit Provider Internal Medicine Rheumatology | DX: R76.8 Other specified abnormal immunological findings in serum (principal); K75.4 Autoimmune hepatitis; Z79.899 Other long term (current) drug therapy; M15.4 Erosive (osteo)arthritis | CPT/HCPCS: 36415; 80076; 82306; 82565; 85025; 86140; 99214 ==

== ENCOUNTER → 2023-04-20 12:48 | Outpatient (BNVA) | payer MEDICARE, MEDICAID, SELFPAY | PROVIDERS: PCP Nurse Practitioner Family; Visit Provider Nurse Practitioner Family | DX: L82.1 Other seborrheic keratosis (principal); L57.0 Actinic keratosis; L57.8 Other skin changes due to chronic exposure to nonionizing radiation; L21.8 Other seborrheic dermatitis; L72.0 Epidermal cyst | CPT/HCPCS: 17000; 99203 ==